=== PATIENT | female | born 1990 | race Caucasian/White ===

== ENCOUNTER 2022-12-28 03:37 | Emergency (ER) | payer OTHER ==
[~2022-12-28] VITALS: Ht 167.6 cm; Wt 63.5 kg
[2022-12-28 04:19] VITALS: BP_SYST 109; PULSE 78; RESP 16; TEMP 97.4; O2SAT 97
== END 2022-12-28 05:17 | disposition left against medical advice (07) ==
LOC: SED 03:37
DX: H57.89 Other specified disorders of eye and adnexa (principal); Z53.21 Procedure and treatment not carried out due to patient leaving prior to being seen by health care provider
CPT/HCPCS: 99281